=== PATIENT | female | born 1985 | race Caucasian/White ===

== ENCOUNTER 2024-08-24 21:01 | Emergency (ER) | payer OTHER, SELFPAY ==
[2024-08-24 21:03] VITALS: BP 133/84; PULSE 99; RESP 15; TEMP 36.4; O2SAT 100; BMI 26.2
--- NOTE | 2024-08-24 21:19 | CT_ITS ---
EXAM: CT CERVICAL SPINE WITHOUT INTRAVENOUS CONTRAST CLINICAL INDICATION: fall TECHNIQUE: Helically acquired images were obtained of the cervical spine without intravenous contrast. 2D reformatted images were reviewed. This CT exam was performed using one or more of the following dose reduction techniques: automated exposure control, adjustment of the mA and/or kV according to patient size, and/or use of iterative reconstruction technique. RADIATION DOSE: CTDIvol = 21.09 mGy, DLP = 467.46 mGy-cm COMPARISON: No relevant prior studies available. FINDINGS: VERTEBRAE: Unremarkable. No fracture. No traumatic subluxation. No discrete lytic or blastic abnormality. Normal alignment. Normal craniocervical junction and cervicothoracic junction. DISCS/SPINAL CANAL/NEURAL FORAMINA: Unremarkable. Disc heights are preserved. No critical stenosis. SOFT TISSUES: Unremarkable. No prevertebral soft tissue swelling. LYMPH NODES: Unremarkable. No cervical adenopathy. LUNG APICES: Unremarkable as visualized. Clear. CT/Spine Cervical without Contras IMPRESSION: No evidence of acute cervical spinal fracture or spondylolisthesis. Electronically Signed: Jalen Celestin MD at 22:25 EST ,
--- NOTE | 2024-08-24 21:19 | CT_ITS ---
EXAM: CT HEAD WITHOUT INTRAVENOUS CONTRAST CLINICAL INDICATION: fall head lac TECHNIQUE: Multiple axial images were obtained of the head without intravenous contrast. This CT exam was performed using one or more of the following dose reduction techniques: automated exposure control, adjustment of the mA and/or kV according to patient size, and/or use of iterative reconstruction technique. RADIATION DOSE: CTDIvol = 44.99 mGy, DLP = 863.60 mGy-cm COMPARISON: No relevant prior studies available. FINDINGS: BRAIN AND EXTRA-AXIAL SPACES: Unremarkable. No intra- or extra-axial hemorrhage. No evidence of acute infarct. No intracranial mass or mass effect. There is preservation of the waldrop/white matter interface. Posterior fossa structures are unremarkable. Ventricles are appropriate for age. No hydrocephalus. Basal cisterns are patent. BONES/JOINTS: Unremarkable. No discrete lytic or blastic abnormalities. SINUSES: Unremarkable as visualized. Clear. MASTOID AIR CELLS: Unremarkable. Clear. ORBITS: Visualized globes, extraocular muscles, optic nerves and retrobulbar fat appear unremarkable. CT/Brain/Head without Contrast IMPRESSION: No acute intracranial abnormality. Electronically Signed: Jalen Celestin MD at 22:24 EST ,
--- NOTE | 2024-08-24 21:33 | EX.ED.DYSGE1 ---
HPI History of Present Illness Chief Complaint: Head Injury Narrative Narrative: Patient is a 38-year-old female with no known significant past medical history who states that she fell down a set of stairs hitting her head and obtaining a cut to the side of her head. She states that she does not remember the entire event. States that she states that she had to use the restroom and started on the steps when she noted that she was at the end of the steps. Patient states that she did not have lightheadedness, dizziness, shortness of breath or chest pain prior to the fall. Patient states that she is unsure when her last tetanus shot was. Patient states that she does have a headache but denies any other pain anywhere else. PFSH PFSH Home Medications ?Medication ?Instructions ?Recorded ?Last Taken ?Type ondansetron 4 mg disintegrating 4 mg PO Q6H PRN nausea and 08/24/24 Unknown Rx tablet vomiting #20 tabs Allergy/AdvReac Type Severity Reaction Status Date / Time Penicillins Allergy Mild Rash Verified 08/24/24 21:03 Social History Smoking Status: Never smoker ROS ROS ED ROS Narrative Constitutional: Complains of headache as noted above denies any lightness, dizziness, fevers, chills Eyes: Denies change in vision double vision blurry vision Cardiovascular: Denies chest pain Respiratory: Denies shortness of breath Abdomen: Denies abdominal pain nausea vomit diarrhea : Denies any urinary symptoms Neurological: Denies numbness, weakness, tingling Musculoskeletal: Denies back pain Skin: Complains of a cut to her head on the right side denies rashes EXAM Physical Exam Narrative Exam Narrative: General: Patient lying in bed rest comfortably did not appear to be acute distress Head: Atraumatic, normocephalic Eyes: PERRL bilateral, EOMI bilateral, no conjunctival injection noted Neck: Soft, supple, trachea midline Cardiovascular: Regular rate and rhythm no murmurs gallops rubs noted Respiratory: Clear to auscultation bilaterally no rales rhonchi or wheeze noted Abdomen: Soft, nondistended, no tenderness palpation, bowel sounds present x 4 Musculoskeletal: No tenderness palpation the midline of the cervical, thoracolumbar spine no step-offs or deformities noted. All joints taken the full range of motion no pain elicited all bony prominences palpated no pain elicited Extremities: +5/5 strength noted in the bilateral upper and lower extremities, no pedal edema no exam Neurological: Patient following commands knew that she was at [facility] years 2023. NIH of 0 GCS 15 Skin: Warm, dry, intact Const Vital Signs: 08/24/24 21:02 08/24/24 21:03 08/24/24 23:02 Temperature 97.5 F L Temperature Source Temporal Pulse Rate 99 86 Respiratory Rate 15 16 Respiratory Effort Normal Non-Labored Respiratory Depth Normal Respiratory Pattern Normal Blood Pressure 133/84 H 119/79 Blood Pressure Mean 100 92 Pulse Ox 100 97 Oxygen Delivery Method Room Air Room Air MDM MDM MDM Narrative Medical decision making narrative: Patient is a 38-year-old female who presented to the emergency department the chief complaint of fall down a set of stairs with a laceration to the right side of her head. Patient will have a workup performed here on the differential diagnose includes but limited to intracranial mass, concussion, cervical spine fracture, laceration. Once workup is obtained reviewed she will be reevaluated. Patient be given a updated tetanus shot here. Patient urinalysis did not reveal any evidence of infection, test was negative. Patient's CT head and brain without contrast showed no acute intracranial abnormality. Patient CT cervical spine reviewed showed no acute evidence of acute cervical spinal fracture or spondylolisthesis. Patient had a laceration repaired here in the emergency department she tolerated the procedure well. Patient was advised to have her sutures removed in approximately 7 days. She was encouraged return with worsening symptoms or concerns. She is advised use Tylenol and ibuprofen for headache control. Prescription will be sent to the pharmacy for Zofran for nausea as needed. She and her significant other at bedside are agreeable this plan they would like to go home all question concerns answered she was discharged home in stable condition. Procedure note Procedure name: Laceration repair Indication: Reduce risk of infection Location: Right scalp Preprocedure diagnosis: Laceration Postprocedure diagnosis: Repaired laceration Informed consent was obtained prior to procedure started. Procedure: The appropriate timeout was taken. The area was prepped and draped in usual sterile fashion. Local anesthesia was achieved using 3 cc of lidocaine 1% without epinephrine. Wound was copiously irrigated. 4 4-0 Ethilon interrupted sutures were placed. Estimated blood loss was less than 0.5 mL. Dressing was applied to the area and anticipatory guidance, as well as standard postprocedure care was explained. Return precautions are given. Patient tolerated procedure well without any complications. Follow-up visit for suture removal and evaluation of laceration. Lab Data Labs: Laboratory Results - last 24 hr 08/24/24 21:46 Urine Color Yellow Urine Clarity Clear Urine pH 7.0 Ur Specific [place] 1.015 Urine Protein 15 H Urine Glucose (UA) Normal Urine Ketones 5 H Urine Occult Blood Negative Urine Nitrite Negative Urine Bilirubin Negative Urine Urobilinogen Normal Ur Leukocyte Esterase Negative Urine RBC 0 SEEN Urine WBC 0 SEEN Ur Squamous Epith Cells 0-5 SEEN Urine Bacteria 0 SEEN Urine Mucus 0 SEEN Urine Test Negative Radiography Diagnostic Testing: Clinical Impression(s) from Imaging Studies Brain CT 08/24/24 21:19 IMPRESSION: No acute intracranial abnormality. Electronically Signed: Jalen Celestin MD at 22:24 EST , Cervical Spine CT 08/24/24 21:19 IMPRESSION: No evidence of acute cervical spinal fracture or spondylolisthesis. Electronically Signed: Jalen Celestin MD at 22:25 EST , Discharge Plan Triage Chief Complaint: Head Injury ED Provider: Tera Magana Dx/Rx/DC Orders Clinical Impression: Fall, Laceration of scalp Prescriptions: New ondansetron 4 mg tablet,disintegrating 4 mg PO Q6H PRN (Reason: nausea and vomiting) Qty: 20 0RF Primary Care Provider: Jason Stewart Referrals: Jason Stewart MD [Primary Care Provider] - Activity Restrictions/Additional Instructions: Follow-up with your primary care physician in the outpatient setting. Return with worsening symptoms or any other concerns. Have your sutures removed in approximately 7 days. Do not soak these it is okay to shower and let warm soapy water run over these. Return with worsening symptoms or any concerns. Watch for signs of infection such as surrounding redness or purulent drainage. Zofran was sent to your pharmacy to use as needed for nausea control. Take ibuprofen Tylenol for headache control. Print Language: Colombian Disposition Disposition: Home, Self Care
[2024-08-24 21:52] LABS: Bacteria 0 SEEN /hpf (None Seen); Mucous, Urine 0 SEEN /hpf (<or=2+); Red Blood Cells-Urine 0 SEEN /hpf (0-5); White Blood Cells 0 SEEN /hpf (0-5)
[2024-08-24 21:56] LABS: Color, Urine Yellow (Yellow); Glucose, Dipstick Normal (Normal); Ketone-Dipstick 5 mg/dl (Negative); Leukocyte Esterase-Dipstick Negative /ul (Negative); Nitrite-Dipstick Negative (Negative); Occult Blood-Urine Negative /ul (Negative); Protein-Dipstick 15 mg/dl (Negative); Specific Gravity, Urine 1.015 (1.002-1.030); Urine Bilirubin Dipstick Negative (Negative); Urine Clarity Clear (Clear); Urine Urobilinogen Normal (Normal)
[2024-08-24 21:58] LABS: Internal QC Validated? YES +Cl - CLEAR BKGD; Pregnancy, Urine Negative Negative
[2024-08-24 22:02] LABS: Squamous Epithelial Cells - UA 0-5 SEEN /hpf (5-10)
[2024-08-24] MEDS: Ondansetron ODT 4 MG Tablet PO (22:53)
[2024-08-24 23:02] VITALS: BP 119/79; PULSE 86; RESP 16; O2SAT 97
[2024-08-24] MEDS: Lidocaine 1% (20 ml mdv) 20 ML Vial 10 ML INFILT (23:29)
[2024-08-24 23:30] VITALS: BP 117/74; PULSE 89; RESP 18
== END 2024-08-24 23:31 | disposition home or self-care (01) ==
PROVIDERS: Emergency Provider Emergency Medicine; PCP Family Medicine; Visit Provider Emergency Medicine
DX: S01.01XA Laceration without foreign body of scalp, initial encounter (principal); W10.9XXA Fall (on) (from) unspecified stairs and steps, initial encounter
CPT/HCPCS: 12002; 70450; 72125; 81001; 81025; 90715; 99282

== ENCOUNTER → 2025-05-12 | Outpatient (CLI) | payer OTHER, SELFPAY ==
--- NOTE | 2025-05-12 12:59 | RAD_ITS ---
PROCEDURE: CHEST PA AND LATERAL 05/12/2025 REASON FOR EXAM: Two-week history of cough. Shortness of breath. TECHNIQUE: CHEST PA AND LATERAL COMPARISON: None FINDINGS: Hardware: None Heart: The heart size is normal. Mediastinum: The mediastinal contour is unremarkable. Lungs: The lungs are clear. Bones: The bones are unremarkable. RAD/Chest PA and Lateral IMPRESSION: NO ACUTE FINDINGS. Reading Location: [id number]
--- NOTE | 2025-05-12 12:59 | RAD_ITS ---
PROCEDURE: CHEST PA AND LATERAL 05/12/2025 REASON FOR EXAM: Two-week history of cough. Shortness of breath. TECHNIQUE: CHEST PA AND LATERAL COMPARISON: None FINDINGS: Hardware: None Heart: The heart size is normal. Mediastinum: The mediastinal contour is unremarkable. Lungs: The lungs are clear. Bones: The bones are unremarkable. RAD/Chest PA and Lateral IMPRESSION: NO ACUTE FINDINGS. Reading Location: [id number]
== END | disposition home or self-care (01) ==
LOC: RAD 12:57
PROVIDERS: PCP Family Medicine; Referring Provider Physician Assistant Surgical; Visit Provider Physician Assistant Surgical
DX: R05.9 Cough, unspecified (principal)
CPT/HCPCS: 71046

== ENCOUNTER → 2025-08-18 | Outpatient (CLI) | payer OTHER, SELFPAY ==
[2025-08-18 09:33] LABS: Hematocrit 36.3 % (37-47); Hemoglobin 12.2 g/dL (12.0-15.0); Immature Granulocytes Count 0.020 X10^3/uL (0.0-0.0); Mean Corp Hgb Conc 33.6 g/dL (32-36); Mean Corpuscular Volume 78.9 fL (81-99); Mean Platelet Vol. 10.4 fl (6.2-12.0); NRBC Flagged by Analyzer 0 % (0-5); Platelet Count 248 K/mm3 (150-450); RBC Distribution Width CV 13.7 % (11.6-14.6); RBC Distribution Width SD 38.7 fl (35.1-43.9); Red Blood Count 4.60 M/mm3 (4.2-5.4); White Blood Count 7.3 K/mm3 (4.4-11.0)
--- OUTSIDE RECORDS SUMMARY | 2025-08-18 09:52 | XMS RPT_ITS | CCD ---
Author Organization [facility] Care Team Providers Care Report Manager Name Role Phone WILBER AYERS Attending Unavailable YANA CORTEZ Primary Care Unavailable GANGA ARCE Attending Unavailable YANA CORTEZ Primary Care Unavailable GANGA ARCE Attending Unavailable YANA CORTEZ Primary Care Unavailable Jason Bernard Primary Care Provider Jason Bernard MD Primary Care Provider Jason Bernard MD Primary Care Provider Dr. Jason Bernard MD Primary Care Provider Pablo Cherry PA-C Attending Provider [phone] Pablo Cherry PA-C Referring Provider [phone] Jason Bernard Primary Care Unavailable Pablo Reyes Referring Unavailable Pablo Reyes Attending Unavailable Tera Magana Attending Unavailable Jason Bernard Primary Care Unavailable Allergies Allergy Classification Reported Allergen(s) Allergy Type Date of Onset Reaction(s) Facility (2 sources) Penicillins Propensity to adverse reactions to drug 8 [facility] Work Phone: (1 source) Penicillins Allergy to substance 4 [facility] (1 source) Penicillins Drug allergy (disorder) 4 [facility] Repository Medications Current Medications Medication Drug Class(es) Dates Sig (Normalized) Sig (Original) calcium chloride 0.0014 meq/ml / potassium chloride 0.004 meq/ml / sodium chloride 0.103 meq/ml / sodium lactate 0.028 meq/ml injectable solution (1 source) Start: 11-27-2019 lactated ringers infusion 1 ml diphenhydrAMINE hydrochloride 50 mg/ml cartridge (1 source) Histamine-1 Receptor Antagonist Start: 11-27-2019 End: 11-27-2019 diphenhydrAMINE (BENADRYL) injection 12.5 mg 1 ml hydrALAZINE hydrochloride 20 mg/ml injection (1 source) Arteriolar Vasodilator Start: 11-27-2019 hydrALAZINE (APRESOLINE) injection 5 mg 1 ml HYDROmorphone hydrochloride 1 mg/ml cartridge (4 sources) Opioid Agonist Start: 11-27-2019 HYDROmorphone (DILAUDID) injection 1 mg Start: 11-27-2019 HYDROmorphone (DILAUDID) injection 0.5 mg Start: 11-27-2019 HYDROmorphone (DILAUDID) injection 0.25 mg 4 ml labetalol hydrochloride 5 mg/ml cartridge (1 source) beta-Adrenergic Lyndsey Start: 11-27-2019 labetalol (NORMODYNE;TRANDATE) injection 5 mg 10 ml lidocaine hydrochloride 10 mg/ml injection (1 source) Antiarrhythmic, Amide Local Anesthetic Start: 11-27-2019 End: 11-27-2019 lidocaine PF 1 % injection 1 mL 1 ml meperidine hydrochloride 50 mg/ml injection (1 source) Opioid Agonist Start: 11-27-2019 meperidine (DEMEROL) injection 12.5 mg ondansetron 4 mg disintegrating oral tablet (2 sources) Serotonin-3 Receptor Antagonist Start: 08-24-2024 take 1 tablet by mouth every six hours as needed for nausea and vomiting Ondansetron 4 mg tablet,disintegrating Active 4 mg PO EVERY 6 HOURS as needed for nausea and vomiting 0 August 24, 2024 1:00am Start: 11-27-2019 End: 11-27-2019 ondansetron (ZOFRAN) injecti on 4 mg oxyCODONE (1 source) Opioid Agonist Start: 11-27-2019 End: 11-27-2019 oxyCODONE (ROXICODONE) immediate release tablet 5 mg 1 ml promethazine hydrochloride 25 mg/ml injection (1 source) Phenothiazine Start: 11-27-2019 End: 11-27-2019 promethazine (PHENERGAN) injection 6.25 mg traMADol hydrochloride 50 mg oral tablet (1 source) Opioid Agonist Start: 11-27-2019 End: 12-04-2019 take 1 tablet by mouth every six hours as needed for pain, then take 1 tablet by mouth as needed for pain traMADol (ULTRAM) 50 MG tablet Indications: Post-operative pain Take 1 tablet by mouth every 6 hours as needed for Pain for up to 7 days. Intended supply: 7 days. Take lowest dose possible to manage pain 28 tablet 0 11/27/2019 12/04/2019 Active Completed/Discontinued Medications Medication Drug Class(es) Dates Sig (Normalized) Sig (Original) acetaminophen 500 mg oral tablet (1 source) Start: 11-27-2019 End: 11-27-2019 acetaminophen (TYLENOL) tablet 1,000 mg aprepitant 40 mg oral capsule (1 source) Substance P/Neurokinin-1 Receptor Antagonist Start: 11-27-2019 End: 11-27-2019 aprepitant (EMEND) capsule 40 mg Start: 11-27-2019 End: 11-27-2019 aprepitant (EMEND) capsule 4 0 mg 50 ml clindamycin 12 mg/ml injection (1 source) Lincosamide Antibacterial Start: 11-27-2019 End: 11-27-2019 clindamycin (CLEOCIN) 600 mg in dextrose 5 % 50 mL IVPB famotidine 20 mg oral tablet (1 source) Histamine-2 Receptor Antagonist Start: 11-27-2019 End: 11-27-2019 famotidine (PEPCID) tablet 20 mg Problems Active Problems Problem Classification Problem Date Documented Date Episodic/Chronic Abdominal pain (2 sources) Lower abdominal pain, unspecified; Translations: [Lower abdominal pain, unspecified] Onset: 12-05-2018 Episodic Chronic obstructive pulmonary disease and bronchiectasis (1 source) Bronchitis; Translations: [Bronchitis, not specified as acute or chronic] 05-11-2025 Episodic E Codes: Fall (1 source) Fall; Translations: [Unspecified fall, initial encounter] 09-01-2024 Episodic Genitourinary symptoms and ill-defined conditions (2 sources) Frequency of micturition; Translations: [Frequency of micturition] Onset: 12-05-2018 Episodic Other nervous system disorders (1 source) Postoperative pain ; Translations: [Post-operative pain] Episodic Unclassified (1 source) Cough, unspecified; Translations: [Cough, unspecified] Onset: 05-21-2025 Past or Other Problems Problem Classification Problem Date Documented Da te Episodic/Chronic Open wounds of head; neck; and trunk (2 sources) Scalp laceration; Translations: [Laceration without foreign body of scalp, initial encounter] Onset: 09-23-2024 09-01-2024 Episodic Other ear and sense organ disorders (1 source) Acute otitis externa of bilateral ears; Translations: [Unspecified acute noninfective otitis externa, bilateral] Onset: 07-13-2020 07-23-2022 Episodic Results Test Name Value Interpretation Reference Range Facil ity Chest PA and Lateralon 05-12 Chest PA and Lateral [facility] Imaging Services [address] [place] [address] Chest PA and Lateral MR#: [id number] Acct: [id number] Name: ADENIKE BERNARDNE Rep #: [id number] : 1985 F 39 From: Douglas barrett MD PCP: Dr. Jason Bernard MD Status: [facility] CLI Study: Chest PA and Lateral Date of Exam: 05/12/25 Exam# [id number] Ordering Dr: Pablo Cherry PA-C PROCEDURE: CHEST PA AND LATERAL 05/12/2025 REASON FOR EXAM: Two-week history of cough. Shortness of breath. TECHNIQUE: CHEST PA AND LATERAL COMPARISON: None FINDINGS: Hardware: None Heart: The heart size is normal. Mediastinum: The mediastinal contour is unremarkable. Lungs: The lungs are clear. Bones: The bones are unremarkable. RAD/Chest PA and Lateral IMPRESSION: NO ACUTE FINDINGS. Reading Location: [facility] CC: PA-C Pablo Cherry; Dr. Jason Bernard MD Project Development Director: Signed Normal [facility] Brain/Head without Contrasto n 08-24-2024 Brain/Head without Contrast [facility] Imaging Services [address] [facility] [place] [address] Brain/Head without Contrast MR#: [id number] Acct: [id number] Name: ADNEIKE BERNARD Rep #: [id number] : 1985 F 38 From: Jalen John PCP: Dr. Jason Bernard MD Status: REG ER Study: Brain/Head without Contrast Date of Exam: 08/07 05/30 Exam# [id number] Ordering Dr: Tera Magana DO [id number] EXAM: CT HEAD WITHOUT INTRAVENOUS CONTRAST CLINICAL INDICATION: fall head lac TECHNIQUE: Multiple axial images were obtained of the head without intravenous contrast. This CT exam was performed using one or more of the following dose reduction techniques: automated exposure control, adjustment of the mA and/or kV according to patient size, and/or use of iterative reconstruction technique. RADIATION DOSE: CTDIvol = 44.99 mGy, DLP = 863.60 mGy-cm COMPARISON: No relevant prior studies available. FINDINGS: BRAIN AND EXTRA-AXIAL SPACES: Unremarkable. No intra- or extra-axial hemorrhage. No evidence of acute infarct. No intracranial mass or mass effect. There is preservation of the waldrop/white matter interface. Posterior fossa structures are unremarkable. Ventricles are appropriate for age. No hydrocephalus. Basal cisterns are patent. BONES/JOINTS: Unremarkable. No discrete lytic or blastic abnormalities. SINUSES: Unremarkable as visualized. Clear. MASTOID AIR CELLS: Unremarkable. Clear. ORBITS: Visualized globes, extraocular muscles, optic nerves and retrobulbar fat appear unremarkable. CT/Brain/Head without Contrast IMPRESSION: No acute intracranial abnormality. Electronically Signed: Jalen Celestin MD at 22:24 EST , CC: Dr. Jason Bernard MD; Dr. Tera Magana DO Project Development Director: Signed Normal [facility] Emergency Department Summary on 08-24-2024 Emergency Department Summary [facility] Medical Records Department [address] [place] [address] Emergency Department Summary 08/24/24 MR#: [id number] Acct: [id number] Name: ADENIKE BERNARD Rep #: [id number] : 1985 38 From: Tera Magana DO PCP: Dr. Jason Bernard MD Status:REG ER Location: ED HPI History of Present Illness Chief Complaint: Head Injury Narrative Narrative: Patient is a 38-year-old female with no known significant past medical history who states that she fell down a set of stairs hitting her head and obtaining a cut to the side of her head. She states that she does not remember the entire event. States that she states that she had to use the restroom and started on the steps when she noted that she was at the end of the steps. Patient states that she did not have lightheadedness, dizziness, shortness of breath or chest pain prior to the fall. Patient states that she is unsure when her last tetanus shot was. Patient states that she does have a headache but denies any other pain anywhere else. PFSH PFSH Home Medications ???Medication ???Instructions ???Recorded ???Last Taken ???Type ondansetron 4 mg disintegrating 4 mg PO Q6H PRN nausea and 08/24/24 Unknown Rx tablet vomiting #20 tabs Allergy/AdvReac Type Severity Reaction Status Date / Time Penicillins Allergy Mild Rash Verified 08/24/24 21:03 Social History Smoking Status: Never smoker ROS ROS ED ROS Narrative Constitutional: Complains of headache as noted above denies any lightness, dizziness, fevers, chills Eyes: Denies change in vision double vision blurry vision Cardiovascular: Denies chest pain Respiratory: Denies shortness of breath Abdomen: Denies abdominal pain nausea vomit diarrhea : Denies any urinary symptoms Neurological: Denies numbness, weakness, tingling Musculoskeletal: Denies back pain Skin: Complains of a cut to her head on the right side denies rashes EXAM Physical Exam Narrative Exam Narrative: General: Patient lying in bed rest comfortably did not appear to be acute distress Head: Atraumatic, normocephalic Eyes: PERRL bilateral, EOMI bilateral, no conjunctival injection noted Neck: Soft, supple, trachea midline Cardiovascular: Regular rate and rhythm no murmurs gallops rubs noted Respiratory: Clear to auscultation bilaterally no rales rhonchi or wheeze noted Abdomen: Soft, nondistended, no tenderness palpation, bowel sounds present x 4 Musculoskeletal: No tenderness palpation the midline of the cervical, thoracolumbar spine no step- offs or deformities noted. All joints taken the full range of motion no pain elicited all bony prominences palpated no pain elicited Extremities: +5/5 strength noted in the bilateral upper and lower extremities, no pedal edema no exam Neurological: Patient following commands knew that she was at [facility] years 2023. NIH of 0 GCS 15 Skin: Warm, dry, intact Const Vital Signs: 08/24/24 21:02 08/24/24 21:03 08/24/24 23:02 Temperature 97.5 F L Temperature Source Temporal Pulse Rate 99 86 Respiratory Rate 15 16 Respiratory Effort Normal Non-Labored Respiratory Depth Normal Respiratory Pattern Normal Blood Pressure 133/84 H 119/79 Blood Pressure Mean 100 92 Pulse Ox 100 97 Oxygen Delivery Method Room Air Room Air MDM MDM MDM Narrative Medical decision making narrative: Patient is a 38-year-old female who presented to the emergency department the chief complaint of fall down a set of stairs with a laceration to the right side of her head. Patient will have a workup performed here on the differential diagnose includes but limited to intracranial mass, concussion, cervical spine fracture, laceration. Once workup is obtained reviewed she will be reevaluated. Patient be given a updated tetanus shot here. Patient urinalysis did not reveal any evidence of infection, test was negative. Patient's CT head and brain without contrast showed no acute intracranial abnormality. Patient CT cervical spine reviewed showed no acute evidence of acute cervical spinal fracture or spondylolisthesis. Patient had a laceration repaired here in the emergency department she tolerated the procedure well. Patient was advised to have her sutures removed in approximately 7 days. She was encouraged return with worsening symptoms or concerns. She is advised use Tylenol and ibuprofen for headache control. Prescription will be sent to the pharmacy for Zofran for nausea as needed. She and her significant other at bedside are agreeable this plan they would like to go home all question concerns answered she was discharged home in stable condition. Procedure note Procedure name: Laceration repair Indication: Reduce risk of infection Location: Ri (more content not included)... Normal [facility] ,Urineon 08-24-2024 Beta HCG ( test) Ql (U) Negative Normal [facility] Comment on above: Order Comment: CLEAN CATCH Result Comment: Very dilute urine specimens, as indicated by a low specific gravity, may not contain customer solutions representative levels of hCG. If is still suspected, a first morning urine specimen should be collected 48 hours later and tested. Performed By: #### L 400.7600, L400.0001 #### [facility] [address] [place], [place], [address] Spine Cervical without Contr ason 08-24-2024 Spine Cervical without Contras [facility] Imaging Services [address] [place] [address] Spine Cervical without Contras MR#: [id number] Acct: [id number] Name: ADENIKE BERNARD Rep #: [id number] : 1985 F 38 From: Jalen John PCP: Dr. Jason Bernard MD Status: REG ER Study: Spine Cervical without Contras Date of Exam: 10/24/23 Exam# [id number] Ordering Dr: Tera Magana DO [id number] EXAM: CT CERVICAL SPINE WITHOUT INTRAVENOUS CONTRAST CLINICAL INDICATION: fall TECHNIQUE: Helically acquired images were obtained of the cervical spine without intravenous contrast. 2D reformatted images were reviewed. This CT exam was performed using one or more of the following dose reduction techniques: automated exposure control, adjustment of the mA and/or kV according to patient size, and/or use of iterative reconstruction technique. RADIATION DOSE: CTDIvol = 21.09 mGy, DLP = 467.46 mGy-cm COMPARISON: No relevant prior studies available. FINDINGS: VERTEBRAE: Unremarkable. No fracture. No traumatic subluxation. No discrete lytic or blastic abnormality. Normal alignment. Normal craniocervical junction and cervicothoracic junction. DISCS/SPINAL CANAL/NEURAL FORAMINA: Unremarkable. Disc heights are preserved. No critical stenosis. SOFT TISSUES: Unremarkable. No prevertebral soft tissue swelling. LYMPH NODES: Unremarkable. No cervical adenopathy. LUNG APICES: Unremarkable as visualized. Clear. CT/Spine Cervical without Contras IMPRESSION: No evidence of acute cervical spinal fracture or spondylolisthesis. Electronically Signed: Jalen Celestin MD at 22:25 EST , CC: Dr. Jason Bernard MD; Dr. Tera Magana DO Project Development Director: Signed Normal [facility] Urinalysis, Completeon 08-24 EPI,SQUAMOUS 0-5 SEEN Normal 5-10 [facility] Comment on above: Order Comment: CLEAN CATCH Performed By: #### L 400.7600, L400.0001 #### [facility] [address] [place], [address] BACTERIA 0 SEEN Normal None Seen [facility] Comment on above: Order Comment: CLEAN CATCH Performed By: #### L 400.7600, L400.0001 #### [facility] [address] [place], [address] Mucus Ql (Urine sed) 0 SEEN Normal [facility] Comment on above: Order Comment: CLEAN CATCH Performed By: #### L 400.7600, L400.0001 #### [facility] [address] [place], [address] RBC 0 SEEN Normal 0-5 [facility] Comment on above: Order Comment: CLEAN CATCH Performed By: #### L 400.7600, L400.0001 #### [facility] [address] [place], [address] WBC 0 SEEN Normal 0-5 [facility] Comment on above: Order Comment: CLEAN CATCH Performed By: #### L 400.7600, L400.0001 #### [facility] [address] [place], [address] HCG,Urine Qualon 11-27-2019 Beta HCG ( test) Ql (U) Negative Normal Negative [facility] Comment on above: Result Comment: Preg vicky is the most common reason for HCG in urine, although choriocarcinoma, hydatidiform mole, and certain nontropho- blastic malignancies also result in detectable urinary HCG levels. Sensitivity = 20mIU/mL. Performed By: #### H CGUR #### [facility] [address] [place] [address] , urineon 0 Beta HCG ( test) Ql (U) Negative Negative NA [facility], [place] Comment on above: is the mos t common reason for HCG in urine, although choriocarcinoma, hydatidiform mole, and certain nontropho- blastic malignancies also result in detectable urinary HCG levels. Sensitivity = 20mIU/mL. Test Performed by [facility] [employer] [facility], [address] , [place], [place] [address] [place] [address], [place] CURon 12-07-2018 CUR . MICRO - Microbiology PROCEDURE: Urine Culture [*1] SOURCE: Urine BODY SITE: COLLECTED DATE/TIME: 12/05/2018 10:07 EST RECEIVED DATE/TIME: 12/05/2018 19:48 EST START DATE/TIME: 12/05/2018 19:48 EST FREE TEXT SOURCE: FINAL REPORTS Final Report [] Verified Date/Time/Personnel: 12/07/2018 07:46 EST 5,000 organisms per mL Mixed without predominant isolate(s). Sensitivity Testing not indicated. Probably contamination. Repeat culture suggested. PRELIMINARY REPORTS Preliminary Report [] Verified Date/Time/Personnel: 12/06/2018 08:45 EST No growth to date Performing Locations *1: This test was performed at: [facility], [address] [place] [address], [address] [place] [address] Normal [facility] ([place]) Comment on above: Performed By: #### C UR #### [place] [address] .Auto Diffon 12-05-2018 Ammonia mass conc (P) 0.70 10 3/mcL Normal 0.15-1.00 [facility] ([place]) Comment on above: Performed By: #### C BC, ADIFF, ANEU #### [address] [address] #### CMP, GFR #### [facility] [address] [place], [place] [address] Basophils #/vol (Bld) 0.00 10 3/mcL Normal 0.00-0.19 [facility] ([place]) Comment on above: Performed By: #### C ONDINA LUNDY, ANEU #### [address] [address] #### CMP, GFR #### [address] [address] Basophils/100 WBC (Bld) 0.3 % Normal 0.0-2.5 [facility] ([place]) Comment on above: Performed By: #### C ONDINA LUNDY, ANEU #### [address] [address] #### CMP, GFR #### [address] [address] Eosinophils #/vol (Bld) 0.10 10 3/mcL Normal 0.00-0.40 [facility] ([place]) Comment on above: Performed By: #### NODINA KINNEY, ANEU #### [place] [address] #### CMP, GFR #### [address] [address] Eosinophils/100 WBC (Bld) 1.5 % Normal 0.0-7.0 [facility] ([place]) Comment on above: Performed By: #### C ONDINA LUNDY, ANEU #### [address] [address] #### CMP, GFR #### [address] [address] Lymphocytes #/vol (Bld) 1.80 10 3/mcL Normal 0.77-3.85 [facility] ([place]) Comment on above: Performed By: #### C KAMRON, EDUIFF, ANEU #### [place] [address] #### CMP, GFR #### [address] [address] Lymphocytes/100 WBC (Bld) 18.8 % Normal 10.0-50.0 [facility] ([place]) Comment on above: Performed By: #### C BC, ADIFF, ANEU #### [address] [address] #### CMP, GFR #### [address] [address] Monocytes/100 WBC (Bld) 7.9 % Normal 1.7-13.0 [facility] ([place]) Comment on above: Performed By: #### C BC, ADIFF, ANEU #### [address] [address] #### CMP, GFR #### [address] [address] Neutrophils/100 WBC (Bld) 71.5 % Normal 37.0-80.0 [facility] ([place]) Comment on above: Performed By: #### C BC, ADIFF, ANEU #### [address] [address] #### CMP, GFR #### [address] [address] .GFRon 12-05-2018 GFR 87 ml/min/1.73sqm Normal [facility] ([place]) Comment on above: Result Comment: GFR Population mean for , Non- Americans Ages 20-29 = 116 mL/min/1.73 sq.m. Ages 30-39 = 107 mL/min/1.73 sq.m. Ages 40-49 = 99 mL/min/1.73 sq.m. Ages 50-59 = 93 mL/min/1.73 sq.m. Ages 60-69 = 85 mL/min/1.73 sq.m. Ages 70+ = 75 mL/min/1.73 sq.m. Chronic Kidney Disease: Less than 60 mL/min/1.73 square meters End Stage Renal Disease: Less than 15 mL/min/1.73 square meters Performed By: #### C BC, ADIFF, ANEU #### [address] [address] #### CMP, GFR #### [address] [address] GFR Non- 72 ml/min/1.73sqm Normal [facility] ([place]) Comment on above: Result Comment: GFR Population mean for , Non- Americans Ages 20-29 = 116 mL/min/1.73 sq.m. Ages 30-39 = 107 mL/min/1.73 sq.m. Ages 40-49 = 99 mL/min/1.73 sq.m. Ages 50-59 = 93 mL/min/1.73 sq.m. Ages 60-69 = 85 mL/min/1.73 sq.m. Ages 70+ = 75 mL/min/1.73 sq.m. Chronic Kidney Disease: Less than 60 mL/min/1.73 square meters End Stage Renal Disease: Less than 15 mL/min/1.73 square meters Performed By: #### C BCONDINA, ANEU #### [place] [address] #### CMP, GFR #### [place] [address] .NEUABSon 12-05-2018 Neutrophils #/vol (Bld) 6.70 10 3/mcL High 2.85-6.16 [facility] ([place]) Comment on above: Performed By: #### ONDINA KINNEY, ANEU #### [place] [address] #### CMP, GFR #### [place] [address] CBCon 12-05-2018 Erythrocyte distribution width Ratio (RBC) 14.2 % Normal 11.5-14.5 [facility] ([place]) Comment on above: Performed By: #### C BCONDINA, ANEU #### [place] [address] #### CMP, GFR #### [place] [address] Hematocrit Volume Fraction (Bld) 40.7 % Normal 37.0-47.0 [facility] ([place]) Comment on above: Performed By: #### C BCONDINA, ANEU #### [place] [address] #### CMP, GFR #### [place] [address] Hemoglobin mass conc (Bld) 13.9 G/dL Normal 12.0-16.0 [facility] ([place]) Comment on above: Performed By: #### C BC, ADIFF, ANEU #### [address] [address] #### CMP, GFR #### [place] [address] MCH Entitic mass (RBC) 28.3 pg Normal 27.0-31.2 [facility] ([place]) Comment on above: Performed By: #### C BC, ADIFF, ANEU #### [place] [address] #### CMP, GFR #### [place] [address] MCHC mass conc (RBC) 34.2 G/dL Normal 33.0-37.0 [facility] ([place]) Comment on above: Performed By: #### C BC, ADIFF, ANEU #### [place] [address] #### CMP, GFR #### [place] [address] MCV Entitic volume (RBC) 82.7 fL Normal 80.0-94.0 [facility] ([place]) Comment on above: Performed By: #### C BC, ADIFF, ANEU #### [place] [address] #### CMP, GFR #### [place] [address] Platelet mean volume Entitic volume (Bld) 9.1 fL Normal 7.4-10.4 [facility] ([place]) Comment on above: Performed By: #### C BC, ADIFF, ANEU #### [place] [address] #### CMP, GFR #### [place] [address] Platelets #/vol (Bld) 225 10 3/mcL Normal 130-400 [facility] ([place]) Comment on above: Performed By: #### C BCEDUIFF, ANEU #### [place] [address] #### CMP, GFR #### [address] [address] RBC #/vol (Bld) 4.92 10 6/mcL Normal 4.20-5.40 [facility] ([place]) Comment on above: Performed By: #### C BC ADIFF, ANEU #### [place] [address] #### CMP, GFR #### [place] [address] WBC #/vol (Bld) 9.30 10 3/mcL Normal 4.60-10.80 [facility] ([place]) Comment on above: Performed By: #### C ONDINA LUNDY, ANEU #### [place] [address] #### CMP, GFR #### [place] [address] CMPon 12-05-2018 Albumin mass conc 4.2 G/dL Normal 3.5-5.0 [facility] ([place]) Comment on above: Performed By: #### C ONDINA LUNDY, ANEU #### [place] [address] #### CMP, GFR #### [place] [address] Albumin/Globulin mass ratio 1.2 {ratio} Normal 1.1-2.5 [facility] ([place]) Comment on above: Performed By: #### C BC, ADIFF, ANEU #### [place] [address] #### CMP, GFR #### [place] [address] ALP enzyme act/vol 84 U/L Normal 40-135 [facility] ([place]) Comment on above: Performed By: #### C BC, ADIFF, ANEU #### [address] [address] #### CMP, GFR #### [address] [address] ALT enzyme act/vol 32 U/L Normal 10-35 [facility] ([place]) Comment on above: Performed By: #### C BC, ADIFF, ANEU #### [address] [address] #### CMP, GFR #### [address] [address] AST enzyme act/vol 18 U/L Normal 10-40 [facility] ([place]) Comment on above: Performed By: #### C BC, ADIFF, ANEU #### [address] [address] #### CMP, GFR #### [place] [id number] Bili Total 0.6 mg/dL Normal 0.2-1.0 [facility] ([place]) Comment on above: Performed By: #### C BC, ADIFF, ANEU #### [address] [address] #### CMP, GFR #### [address] [address] Calcium mass conc 9.4 mg/dL Normal 8.4-10.2 [facility] ([place]) Comment on above: Performed By: #### C BC, ADIFF, ANEU #### [address] [address] #### CMP, GFR #### [address] [address] Chloride molar conc 101 mmol/L Normal 98-107 [facility] ([place]) Comment on above: Performed By: #### C BC, ADIFF, ANEU #### [address] [address] #### CMP, GFR #### [address] [address] CO2 molar conc 27 mmol/L Normal 22-29 [facility] ([place]) Comment on above: Performed By: #### C BC, ADIFF, ANEU #### [address] [address] #### CMP, GFR #### [address] [address] Creatinine mass conc 0.90 mg/dL Normal 0.55-1.02 [facility] ([place]) Comment on above: Performed By: #### C BC, ADIFF, ANEU #### [address] [address] #### CMP, GFR #### [address] [address] Electrolyte Balance 11.0 mEq/L Normal [facility] ([place]) Comment on above: Performed By: #### C BC, ADIFF, ANEU #### [address] [address] #### CMP, GFR #### [address] [address] Globulin mass conc (S) 3.5 G/dL Normal [facility] ([place]) Comment on above: Performed By: #### C BC, ADIFF, ANEU #### [address] [address] #### CMP, GFR #### [address] [address] Glucose mass conc 86 mg/dL Normal 70-105 [facility] ([place]) Comment on above: Performed By: #### C BC, ADIFF, ANEU #### [address] [address] #### CMP, GFR #### [address] [address] Potassium molar conc 4.4 mmol/L Normal 3.5-5.1 [facility] ([place]) Comment on above: Performed By: #### C BC, ADIFF, ANEU #### [address] [address] #### CMP, GFR #### [address] [address] Protein mass conc 7.7 G/dL Normal 6.4-8.2 [facility] ([place]) Comment on above: Performed By: #### C BC, ADIFF, ANEU #### [address] [address] #### CMP, GFR #### [address] [address] Sodium molar conc 139 mmol/L Normal 136-145 [facility] ([place]) Comment on above: Performed By: #### C BC, ADIFF, ANEU #### [address] [address] #### CMP, GFR #### [place] [id number] Urea nitrogen mass conc 14 mg/dL Normal 7-18 [facility] ([place]) Comment on above: Performed By: #### C BC, ADIFF, ANEU #### [address] [address] #### CMP, GFR #### [place] [address] Urea nitrogen/Creatinin e mass ratio 16 ratio Normal 7-27 [facility] ([place]) Comment on above: Performed By: #### C BC, ADIFF, ANEU #### [address] [address] #### CMP, GFR #### [place] [address] CT ABDOMEN/PELVIS W/CONTRAST on 12-05-2018 CT ABDOMEN/PELVIS W/CONTRAST ORIGINAL CT ABDOMEN/PELVIS W/CONTRAST TECHNIQUE: Images were obtained after the administration of IV and enteric contrast. This exam was performed according to our departmental dose optimization program, and includes the following measures where applicable: automated exposure control, adjustment of the mAs and/or kVp according to patient size and/or exam, and an iterative reconstruction algorithm. CLINICAL STATEMENT: abd pain. COMPARISON: No osseous abnormality seen. Minimal scarring is present at the lateral LEFT lung base. The lung bases are otherwise unremarkable. No focal liver lesion seen. Cholelithiasis is present. The spleen, adrenal glands and pancreas appear normal. Allowing for a cortical phase nephrogram, there is no renal finding. No adenopathy, free air or free fluid is visible. No GI tract abnormality seen. The appendix is normal. A small benign LEFT ovarian follicular cyst is present. This does not require further imaging assessment. No additional contributory finding. FINDINGS: 1. No acute process. 2. Cholelithiasis. IMPRESSION: Interpreted By: Jalen Eli MD Preliminary Report By: Jalen Eli MD Electronically Signed By: Jalen Eli MD Dictated Date: 12/05/2018 2:08:39 PM Prelim Date: 12/05/2018 2:08:39 PM Sign Date: 12/05/2018 2:10:35 PM Normal [facility] ([place]) US PELVIS NON-OB COMPLETEon 10-13-2018 US PELVIS NON-OB COMPLETE ORIGINAL US PELVIS NON-OB COMPLETE CLINICAL STATEMENT: EXCESSIVE AND FREQUENT MENUSTRATION W/ REGULAR CYCLE COMPARISON: None FINDINGS:Today's examination reveals a uterine length of 10.8 cm. Endometrial thickness is measured at 1.2 cm. The LEFT ovary measures 2.9 x 2.7 x 1.4 cm. The RIGHT ovary measures 2.8 x 3.6 x 3.1 cm and contains a simple 2.6 m cyst. No adnexal mass is identified. No obvious fibrotic changes to the uterus are noted. Small amount of free fluid is present in the pelvis. IMPRESSION:Simple RIGHT ovarian cyst requiring no further evaluation. Trace amount of probable physiologic free fluid. No additional acute process is identified. Interpreted By: Vale Andrea MD Preliminary Report By: Vale Andrea MD Electronically Signed By: Vale Andrea MD Dictated Date: 10/13/2018 2:33:15 PM Prelim Date: 10/13/2018 2:33:15 PM Sign Date: 10/13/2018 2:35:09 PM Normal [facility] ([place]) Vital Signs Date Time Vital Sign Value Performing Clinician Huber jamil 11-27-2019 09:01-0500 Body Temperature 97.9 [degF] [facility] [place] 11-27-2019 09:01-0500 BP Diastolic 74 mm[Hg] [facility] [place] , [place] 11-27-2019 09:01-0500 BP Systolic 110 mm[Hg] Jaciel Daley [facility] , [place] 11-27-2019 09:01-0500 Pulse (Heart Rate) 73 /min Jaciel Daley [facility], [place] 11-27-2019 09:01-0500 Pulse Oximetry 100 % Jaciel Camacho [facility] , [place] 11-27-2019 09:01-0500 Respiratory Rate 16 /min Jaciel Camacho [facility], [place] 11-27-2019 06:52-0500 BMI (Body Mass Index) 24.81 kg/m2 Jaciel Camacho [facility], [place] 11-27-2019 06:52-0500 Body weight 76.2 kg Jaciel Daley [facility] , [place] 11-27-2019 06:52-0500 Height 175.3 cm Jaciel Daley [facility] , [place] Encounters Encounter Date Encounter Type Care Provider Facility Start: 05-12-2025 End: 05-12-[address] Jason Bernard MD Work Phone: -Radiology [facility] Start: 05-12-2025 End: 05-12-2025 Patient encounter procedure Pablo LARSON-C -Radiology [facility] Work Phone: Start: 05-11-2025 End: 05-12-2025 Orders Only Jason Bernard MD Work Phone: [facility] Comment on above: Bronchitis (Primary Dx) Start: 08-24-2024 End: 08-24-2024 Emergency department patient visit [facility] Facility:[facility] Start: 11-27-2019 End: 11-27-2019 Subsequent hospital visit by physician Jaciel Daley Work Phone: [facility] Comment on above: Post-operative pain (Primary Dx) Start: 10-08-2019 End: 10-08-2019 Subsequent hospital visit by physician Jaciel Daley MD Work Phone: [facility] Start: 12-05-2018 End: 12-10-2018 Patient encounter procedure [facility] Facility:B Start: 12-05-2018 End: 12-06-2018 Patient encounter procedure GANGA ARCE Facility:B Start: 10-13-2018 End: 10-14-2018 Patient encounter procedure WILBER AYERS Facility:B Procedures Date Procedure Procedure Detail Performing Clinician Start: 05-12-2025 X-ray of chest, PA a nd lateral views Dr. Jason Bernard MD Work Phone: Start: 11-27-2019 OPERATIVE REPORT 3m Sca nning Start: 11-27-2019 Urine test visual color cmprsn meths Javad Francois Work Phone: Plan of Treatment Date Care Activity Detail Author Start: 2035 Shingles Vaccine (1 of 2) Shingles Vaccine (1 of 2) [place] Start: 05-11-2025 End: 05-11-2026 XR Chest 2 Views XR chest 2 views Imaging Routine Bronchitis Expected: 05/11/2025, Expires: 05/11/2026 [facility] Work Phone: Comment on above: Expected: 05/11/2025 , Expires: 05/11/2026 Start: 12-10-2019 End: 12-10-2019 Office Visit 12/10/2019 Office Visit Orthopedic Surgery Jaciel Daley MD [address] [facility] [address] [place] [id number] [facility] [place] Start: 06-07-2019 Influenza vaccination Flu vaccine (# 1) [facility] Work Phone: Start: 2006 Cervical cancer screen Cervical canc er screen [facility] Work Phone: Start: 2000 HIV screen HIV screen [employer] Work Phone: Start: 1996 DTaP/Tdap/Td vaccine (1 - Tdap) DTaP/Tdap/Td vaccine (1 - Tdap) [facility] Work Phone: Start: 1986 Varicella vaccine (1 of 2 - 2-dose childhood series) Varicella vaccine (1 of 2 - 2-dose childhood series) [facility] Work Phone: Incentive spirometry Incentive s pirometry Respiratory Care Routine Q1H PRN until discontinued starting 11/27/2019 [place] Comment on above: Q1H PRN until discon tinued starting 11/27/2019 Initiate Oxygen Ther apy Protocol Initiate Oxygen Therapy Protocol Respiratory Care Routine Daily until discontinued starting 11/27/2019 [place] Comment on above: Daily until disconti nued starting 11/27/2019 Phase I & II - meter ed glucose Phase I & II - metered glucose Point of Care Testing Routine As Needed until discontinued starting 11/27/2019 [place] Comment on above: As Needed until disc ontinued starting 11/27/2019 End: 11-27-2019 Pulse Oximetry Spot Check Pulse Oximetry Spot Check Respiratory Care Routine One Time for 1 Occurrences starting 11/27/2019 until 11/27/2019 [place] Comment on above: One Time for 1 Occur rences starting 11/27/2019 until 11/27/2019 Immunizations Immunization Date Immunization Notes Care Provider [facility] 08-11-2009 novel influenza-H1N1 -09, all formulations Jason Bernard MD Work Phone: [facility] Payers Date Payer Category Payer Self-pay 2024 Unknown [id number] 2018 Unknown [id number] 2017 Unknown [employer] xxxxxxxxxxx 2017-Present [phone] [address] [place] [address] xxxxxxxxxxx [id number] 1985 Unknown [id number] 1985 Unknown [id number] 1985 Unknown [id number] Unknown [id number] Unknown [id number] Unknown [id number] Social History Date Type Detail Facility Start: 11-27-2019 End: 08-24-2024 Tobacco smoking status NHIS Never smoker [facility] Work Phone: Start: 11-27-2019 End: 09-25-2022 Alcohol intake Current drinker of alcohol (finding) [facility] Work Phone: Start: 11-27-2019 Alcohol Comment socially [facility] [place] [place] Start: 1985 Sex Assigned At Not on file [employer] Work Phone: Start: 09-25-2022 History of Social function [facility] [employer] Start: 09-25-2022 Tobacco use panel [facility] Start: 05-07-2022 Sex Female (finding) [facility] Start: 1985 Sex Assigned At Female W [facility] Radiology Diagnostic study note 05-12-2025 Note Date & Type Note Facility 05-12-2025 Radiology Diagnostic study note [facility] Imaging Services [address] [place], [place] [address] Chest PA and Lateral MR#: [id number] Acct: [id number] Name: ADENIKE BERNARD Rep #: [id number] 1 : 1985 F 39 From: Johnathan Martínez MD PCP: Dr. Jason Bernard MD Status: [facility] CLI Study:Chest PA and Lateral Date of Exam: 05/12/25 Exam# [id number] Ordering Dr: Pablo Cherry PA-C PROCEDURE: CHEST PA AND LATERAL 05/12/2025 REASON FOR EXAM: Two-week history of cough. Shortness of breath. TECHNIQUE: CHEST PA AND LATERAL COMPARISON: None FINDINGS: Hardware: None Heart: The heart size is normal. Mediastinum: The mediastinal contour is unremarkable. Lungs: The lungs are clear. Bones: The bones are unremarkable. RAD/Chest PA and Lateral IMPRESSION: NO ACUTE FINDINGS. Reading Location: [id number] CC: WINSTON Cherry; Dr. Jason Bernard MD ~ Project Development Director: Signed [facility] Evaluation note Note Date & Type Note Facility Evaluation note Diagnosis Bronchitis- Primary Bronchitis, not specified as acute or chronic documented in this encounter 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 You received a local injection with lidocaine and epinephrine today. It is normal for your finger tip to look pale or white for up to 10 hours after surgery but if this persists past the 10 hours please call the office immediately. Elevate and Ice for pain control. Encourage range of motion of index finger, long finger, ring finger, little finger, thumb, and elbow in splint/dressing with goal of touching finger tips to splint material/dressing in palm by initial post op appointment. Non weight bearing in operative extremity. documented in this encounter History of Present Illness * Codi Pedro RN - 11/27/2019 9:34 AM EST Phase II indicated, pt awake and talking, VS stable, pt dressed and ambulated to wheelchair withoutdifficulty, home going instructions reviewed with patient, verbal understanding demonstrated and opportunity given for questions * Codi Pedro RN - 11/27/2019 9:05 AM EST PATIENT RECEIVED FROM OR VIA CART. SPONT RESP. WITH CHIEF OF INTERNAL MEDICINE IN ATTENDANCE. documented in this encounter Assessments Diagnosis Post-operative pain- Primary Other acute postoperative pain Chief Complaint and Reason for Visit Chief Complaint Admit Date Cough May 12, 2025 12: 56pm Additional Source Comments INFORMATION SOURCE (unrecogn ized section and content) DATE CREATED AUTHOR 12/11/2018 [facility] ([place]) DATE CREATED AUTHOR AUTHOR'S ORGANIZ ATION 01/06/2020 [facility] DATE CREATED AUTHOR AUTHOR'S ORGANIZ ATION 05/23/2025 [facility] Care Teams (unrecognized sec tion and content) Report Manager Relationship Specialty Start Date End Date Jason Bernard MD [address] [place] [address], [place] [address] PCP - General 12/26/17 Team Status: Active Member Role/Relationship Status Dates Dr. Jason Bernard MD Primary Care Provider Active Team Status: Inactive Member Role/Relationship Status Dates Dr. Jason Bernard MD Primary Care Provider Active Start: May 12, 2025 End: May 12, 2025 Pablo LARSON PA-C Attending Provider Active Start: May 12, 2025 End: May 12, 2025 Pablo LARSON PA-C Referring Provider Active Start: May 12, 2025 End: May 12, 2025 Goals (unrecognized section and content) Goals may be documented in a n alternate section FOR RECORDS PERTAINING TO PATIENTS WHO ARE OR HAVE BEEN ENROLLED IN A CHEMICAL DEPENDENCY/SUBSTANCEABUSE PROGRAM, SOME INFORMATION MAY BE OMITTED. This clinical summary was aggregated from multiple sources. Caution should be exercised in using it in the provision of clinical care. This summary normalizes information from multiple sources, and as a consequence, information in this document may materially change the coding, format and clinical context of patient data. In addition, data may be omitted in some cases. CLINICAL DECISIONS SHOULD BE BASED ON THE PRIMARY CLINICAL RECORDS. [employer] provides no warranty or guarantee of the accuracy or completeness of information in this document.
[2025-08-18 10:21] LABS: AST(SGOT) 20 U/L (<=31); Alanine Aminotransfer ALT/SGPT 14 U/L (<=34); Albumin, Serum 4.4 g/dL (3.5-5.0); Alkaline Phosphatase 58 U/L (35-104); Anion Gap 9 (5-15); BUN 13 mg/dL (4-19); BUN/Creat Ratio 14.8 RATIO (10-20); CORTISOL AM 8.88 ug/dL (6.02-18.40); Calcium,Total 9.0 mg/dL (7.6-11.0); Carbon Dioxide 23.4 mmol/L (21.0-32.0); Chloride 105 mmol/L (98-108); Cholesterol 157 mg/dL (<=200); Globulin 2.6 g/dL (2.2-4.2); Glucose 82 mg/dL (70-99); Low Density Lipoprotein Calc. 92 mg/dL; Potassium 4.0 mmol/L (3.3-5.1); Triglycerides 53 mg/dL; Very Low Density Lipoprotein 11 mg/dL (5-40); Vitamin B12 904 pg/mL (180-914); cholesterol:hdl ratio screen 2.92
[2025-08-20 12:42] LABS: Iron 21 ug/dL (50-170); Iron Binding Capacity,Unsat 148 ug/dL (228-428)
[2025-08-20 13:51] LABS: Iron Binding Capacity,Total 169 ug/dL (250-450)
[2025-08-20 16:09] LABS: PROEL- A/G Ratio 1.4 (0.7-1.7); PROEL- Albumin 3.7 g/dL (2.9-4.4); PROEL- Alpha-1 Globulin 0.1 g/dL (0.0-0.4); PROEL- Alpha-2 Globulin 0.7 g/dL (0.4-1.0); PROEL- Beta Globulin 0.9 g/dL (0.7-1.3); PROEL- Gamma Globulin 0.9 g/dL (0.4-1.8); PROEL- Globulin, Total 2.7 g/dL (2.2-3.9); PROEL- TOTAL PROTEIN 6.4 g/dL (6.0-8.5); PROEL-M-Spike Not Observed g/dL (Not Observed); PROELU- Albumin, Urine 27.3 % (.); PROELU- Alpha-1-Globulin,Ur 3.9 % (.); PROELU- Alpha-2-Globulin,Ur 15.2 % (.); PROELU- Beta Globulin, Ur 22.1 % (.); PROELU- Gamma Globulin, Ur 31.4 % (.); Total Protein, Ur < 4.0 mg/dL (Not Estab.)
== END | disposition home or self-care (01) ==
PROVIDERS: PCP Family Medicine; Referring Provider Specialist; Visit Provider Specialist
DX: R53.82 Chronic fatigue, unspecified (principal)
CPT/HCPCS: 36415; 80053; 80061; 82533; 82607; 82627; 83540; 83550; 84165; 84166; 84443; 85025; 82626

== ENCOUNTER → 2025-08-26 | Outpatient (CLI) | payer OTHER, SELFPAY ==
[2025-08-26 11:13] LABS: CRP 17.80 mg/L (0.0-3.0); Ferritin 21 ng/mL (22-378); Vitamin D,25 Hydroxy 50.9 ng/mL (30-100)
[2025-08-28 09:08] LABS: ANTINUCLEAR ANTIBODIES DIRECT Negative (Negative); Anti-Chromatin <0.2 AI (0.0-0.9); Anti-Jo <0.2 AI (0.0-0.9); Anti-dsDNA Ab 1 IU/mL (0-9); Anti-ribosomal P Antibodies <0.2 AI (0.0-0.9); SJOGREN'S Anti-SS-A test < 0.2 AI (0.0-0.9); SJOGREN'S Anti-SS-B test < 0.2 AI (0.0-0.9); Smith/RNP Ab <0.2 AI (0.0-0.9)
== END | disposition home or self-care (01) ==
PROVIDERS: PCP Internal Medicine; Referring Provider Specialist; Visit Provider Specialist
DX: R53.82 Chronic fatigue, unspecified (principal)
CPT/HCPCS: 36415; 82306; 82728; 85652; 86038; 86140; 86225; 86235

== ENCOUNTER 2025-08-31 11:42 | Outpatient (CLI) | payer OTHER, SELFPAY ==
[2025-08-31 13:34] LABS: D-Dimer Quantitative (DVT/PE) 0.27 FEU/ug/m (0.27-0.49)
[2025-08-31 15:25] LABS: Hematocrit 40.3 % (37-47); Hemoglobin 12.8 g/dL (12.0-15.0); Immature Granulocytes Count 0.010 X10^3/uL (0.0-0.0); Mean Corp Hgb Conc 31.8 g/dL (32-36); Mean Corpuscular Volume 82.4 fL (81-99); Mean Platelet Vol. 11.2 fl (6.2-12.0); NRBC Flagged by Analyzer 0 % (0-5); Platelet Count 328 K/mm3 (150-450); RBC Distribution Width CV 13.8 % (11.6-14.6); RBC Distribution Width SD 41.0 fl (35.1-43.9); Red Blood Count 4.89 M/mm3 (4.2-5.4); White Blood Count 6.1 K/mm3 (4.4-11.0)
[2025-08-31 16:03] LABS: Free T3 3.4 pg/mL (2.18-3.98)
[2025-08-31 16:16] LABS: CRP < 3.00 mg/L (0.0-3.0)
[2025-09-04 01:06] LABS: EBV Acute VCA IgM < 36.0 U/mL (0.0-35.9); EBV-VCA IgG 179.0 U/mL (0.0-17.9); HEPATITIS B SURFACE AG Negative (Negative); Hep C Antibodies Non Reactive (Non Reactive); Immunoglobulin A 86 mg/dL (87-352)
== END 2025-08-31 23:59 | disposition home or self-care (01) ==
LOC: CIMLAB 11:42
PROVIDERS: PCP Internal Medicine; Referring Provider Internal Medicine; Visit Provider Internal Medicine
DX: R06.02 Shortness of breath (principal); L65.9 Nonscarring hair loss, unspecified; R07.89 Other chest pain; E61.6 Vanadium deficiency; R79.89 Other specified abnormal findings of blood chemistry; R53.83 Other fatigue
CPT/HCPCS: 36415; 80074; 82784; 83516; 84439; 84481; 85025; 85379; 86140; 86255; 86376; 86617; 86644; 86664; 86665

== ENCOUNTER → 2025-09-17 | Outpatient (CLI) | payer OTHER, SELFPAY | END | disposition home or self-care (01) | LOC: CVS 13:41 | PROVIDERS: PCP Internal Medicine; Referring Provider Internal Medicine; Visit Provider Internal Medicine | DX: R07.89 Other chest pain (principal); R06.02 Shortness of breath | CPT/HCPCS: 93306 ==

== ENCOUNTER → 2025-09-23 | Outpatient (CLI) | payer OTHER, SELFPAY ==
--- NOTE | 2025-09-23 12:03 | BI_ITS ---
EXAM: SCRN MAMM (CAD)W/NAOMI BILAT DATE: 09/23/2025 CLINICAL HISTORY: F, Age 39 y/o , SCREENING Grandmother with breast cancer. TECHNIQUE: Procedure Code: [id number] Modality: MG Procedure: SCRN MAMM (CAD)W/NAOMI BILAT COMPARISON: This is a baseline examination. FINDINGS: TISSUE DENSITY: The breasts are heterogeneously dense, which may obscure small masses. Bilateral Breast Mammographic Findings: No significant masses, calcifications or other abnormalities are identified. No suspicious masses, areas of developing architectural distortion, or suspicious calcifications. BI/SCRN MAMM (CAD)W/NAOMI BILAT IMPRESSION: Unremarkable screening mammogram. OVERALL FINAL ASSESSMENT BI-RADS 1: NEGATIVE. RECOMMENDATION: Routine annual follow-up in 1 Year Additional Recommendation none A letter with findings and recommendations will be mailed to the patient. Reading Location: [id number]
== END | disposition home or self-care (01) ==
LOC: OPBI 11:59
PROVIDERS: PCP Internal Medicine; Referring Provider Internal Medicine; Visit Provider Internal Medicine
DX: Z12.31 Encounter for screening mammogram for malignant neoplasm of breast (principal)
CPT/HCPCS: 77063; 77067